=== PATIENT | female | born 1990 | race Caucasian/White ===

== ENCOUNTER 2020-11-02 04:19 | Day surgery (SDC) | payer OTHER ==
[2020-11-02 10:16] VITALS: TEMP 98
[2020-11-02 15:36] VITALS: BP 106/72; PULSE 68
== END 2020-11-02 11:05 | disposition home or self-care (01) ==
LOC: JASU-ENDO 04:19
PROVIDERS: ATTEND Internal Medicine Gastroenterology
PROC: 0DB78ZX Excision of Stomach, Pylorus, Via Natural or Artificial Opening Endoscopic, Diagnostic (ICD-10-PCS; principal; 2020-11-02 09:00)
DX: K29.50 Unspecified chronic gastritis without bleeding (principal); B96.81 Helicobacter pylori [H. pylori] as the cause of diseases classified elsewhere; R10.13 Epigastric pain
CPT/HCPCS: 81025

== ENCOUNTER 2021-01-11 05:03 | Day surgery (SDC) | payer OTHER ==
[2021-01-09 13:11] VITALS: BMI 28.1
[2021-01-11 12:48] VITALS: BP 106/59; PULSE 64; TEMP 20
== END 2021-01-11 12:40 | disposition home or self-care (01) ==
LOC: JASU-ENDO 05:03
PROVIDERS: ATTEND Internal Medicine Gastroenterology
PROC: 0DJD8ZZ Inspection of Lower Intestinal Tract, Via Natural or Artificial Opening Endoscopic (ICD-10-PCS; principal; 2021-01-11 10:45)
DX: R10.84 Generalized abdominal pain (principal); K64.8 Other hemorrhoids
CPT/HCPCS: 81025